=== PATIENT | male | born 1985 | race Caucasian/White ===

== ENCOUNTER → 2020-10-21 | Outpatient (CLI) | payer BC ==
--- NOTE | 2020-10-21 12:16 | NM ---
EXAMINATION TYPE: NM stress cardiolite complete DATE OF EXAM: 10/21/2020 COMPARISON: NONE HISTORY: Chest pain TECHNIQUE: After the intravenous administration of 9.6 mCi Tc 99m Sestamibi - Rest images obtained 4 5 minutes post injection. The patient exercised using a YOLA protocol and 1 minute prior to peak e xercise was injected with 24.7 mCi Tc 99m Sestamibi - Stress images obtained 25 minutes post injectio n. FINDINGS: Targeted heart rate was achieved during performance of the study. Review of stress and rest SPECT dinorah ges demonstrates no distinct perfusion abnormality. Gated analysis shows normal wall motion with an estimated left ventricular ejection fraction of 65%. IMPRESSION: No scintigraphic evidence for reversible ischemia. Consider echocardiographic evaluation for elevated ejection fraction.
--- NOTE | 2020-10-21 12:26 | EST ---
EXERCISE STRESS AGE: 35 SEX: Male HT: 5'3" WT: 203 lbs. PROTOCOL: Cardiolite Lino STAGE: III DURATION OF EXERCISE: 10 minutes. HEART RATE REST: 62 BLOOD PRESSURE REST: 140/87 MAXIMUM HEART RATE ACHIEVED: 182 MAXIMUM BLOOD PRESSURE: 178/94 85% MPHR: 157 100% MPHR: 185 METS: 11.5 INDICATIONS: Chest pain CLINICAL INFORMATION: Baseline EKG revealed normal sinus rhythm with right bundle branch block pattern. Patient walked for 9 minute 20 seconds, achieved a maximal heart rate of 182 beats per minute which is well above 85% of predicted maximal. He developed fatigue, shortness of breath but did not have any angina or arrhythmia. EKG did not reveal any ST-segment changes to indicate ischemia. By EKG criteria, this is a negative stress test with good exercise capacity. Patient walked for 10 minutes on a standard Lino protocol and then felt very throbbing sensation in the head and a blurry vision at peak exercise, which Anila which resolved very quickly. EKG did not reveal any ST-segment changes to indicate ischemia. By EKG criteria, this is a negative stress test with excellent exercise capacity. The nuclear scan results which are more pertinent will be reported by the radiologist. MMODL / IJN: [id number] /
== END | disposition home or self-care (01) ==
LOC: RADNMMAIN 07:50
PROVIDERS: ATTEND Family Medicine
DX: I45.10 Unspecified right bundle-branch block (principal)
CPT/HCPCS: 93017; 78452; A9500